=== PATIENT | male | born 1990 | race Caucasian/White ===

== ENCOUNTER 2019-06-15 01:24 | Emergency (ER) | payer BC ==
[~2019-06-15] VITALS: Ht 182.9 cm; Wt 97.7 kg
[2019-06-15 01:25] VITALS: TEMP 97.7
[2019-06-15 02:13] LABS: BASO # 0.1 (0.0-0.2); BASO % 0.7 % (0.0-2.0); EOS # 0.4 (0.0-0.7); EOS % 4.7 % (0-4.0); GRAN # 3.4 (1.4-6.5); GRAN % 45.7 % (42.2-75.2); HEMOGLOBIN 15.5 g/dl (13.5-18.0); LYMPH % 40.3 % (20.0-51.0); MEAN CELL VOLUME 86 fl (80.0-100.0); MEAN CORPUSCULAR HEMOGLOBIN 30 pg (27.0-31.0); MEAN CORPUSCULAR HGB CONC 34 g/dl (33.0-37.0); MEAN PLATELET VOLUME 9.4 fl (7.4-10.4); MONO # 0.6 (0.1-0.6); MONO % 8.1 % (1.7-9.3); PLATELET COUNT 247 K/mm3 (130-400); RED BLOOD COUNT 5.21 M/mm3 (4.20-5.60)
[2019-06-15 02:25] LABS: ALBUMIN 4.7 gm/dL (3.5-5.0); BILIRUBIN,TOTAL 0.7 mg/dL (0.0-1.0); C-REACTIVE PROTEIN 1.1 mg/dL (0.0-0.9); CALCIUM 9.5 mg/dL (8.4-10.2); CREATININE, serum 0.83 (0.66-1.25); POTASSIUM 3.9 mmol/L (3.4-5.0); TOTAL PROTEIN 7.7 gm/dL (6.4-8.2)
[2019-06-15 02:39] LABS: PROLACTIN 37.1 ng/mL (3.7-17.9)
[2019-06-15] MEDS ORDERED: PROTONIX40 MG/Pack PO (02:41)
[2019-06-15 04:00] VITALS: BP 113/70; PULSE 72
== END 2019-06-15 04:01 | disposition short-term general hospital (02) ==
LOC: COL.ER 01:24
PROVIDERS: Emergency Medicine
DX: G93.89 Other specified disorders of brain (principal); R56.9 Unspecified convulsions; K21.9 Gastro-esophageal reflux disease without esophagitis
CPT/HCPCS: J1100; J1953; J2060; J7030

== ENCOUNTER 2019-06-29 20:58 | Emergency (ER) | payer BC ==
[~2019-06-29] VITALS: Ht 182.9 cm; Wt 97.7 kg
[~2019-06-29 20:58] MED LIST: PROTONIX40 MG/Pack PO
[2019-06-29 21:15] VITALS: TEMP 99.6
[2019-06-29] MEDS ORDERED: TESSALON P100 MG/CAP PO (21:50)
[2019-06-29] MEDS ORDERED: TYLENOL 325MG325 MG PO (21:50)
[2019-06-29] MEDS ORDERED: VITAMIN D31000 IU PO (21:52)
[2019-06-29] MEDS ORDERED: DECADRON 1MG TAB1 MG PO (21:52)
[2019-06-29] MEDS ORDERED: KEPPRA1000 MG PO (21:52)
[2019-06-29] MEDS ORDERED: OXY IR5 MG PO (21:54)
[2019-06-29] MEDS ORDERED: CHLORASEPTIC 1180 M3 (21:55)
[2019-06-29] MEDS ORDERED: PROBIOTICA100 Millio PO (21:55)
[2019-06-29] MEDS ORDERED: VTAMINC250TA (21:56)
[2019-06-29] MEDS ORDERED: SENOKOT S 50 MG1 TAB PO (21:56)
[2019-06-29] MEDS ORDERED: LEVAQUIN 750MG750 M1 PO (23:03)
[2019-06-29] MEDS ORDERED: TUSS PO (23:03)
[2019-06-29 23:43] VITALS: BP 108/70; PULSE 91
== END 2019-06-29 23:45 | disposition home or self-care (01) ==
LOC: COL.ER 20:58
DX: J18.1 Lobar pneumonia, unspecified organism (principal); Z79.899 Other long term (current) drug therapy

== ENCOUNTER 2019-06-30 17:01 | Emergency (ER) | payer BC ==
[~2019-06-30] VITALS: Ht 182.9 cm; Wt 97.7 kg
[~2019-06-30 17:01] MED LIST changes: +CHLORASEPTIC 1180 M3; +DECADRON 1MG TAB1 MG PO; +KEPPRA1000 MG PO; +LEVAQUIN 750MG750 M1 PO; +OXY IR5 MG PO; +PROBIOTICA100 Millio PO; +SENOKOT S 50 MG1 TAB PO; +TESSALON P100 MG/CAP PO; +TUSS PO; +TYLENOL 325MG325 MG PO; +VITAMIN D31000 IU PO; +VTAMINC250TA
[2019-06-30 17:21] VITALS: TEMP 99.5
[2019-06-30 18:27] LABS: HEMATOCRIT 47.9 % (42.0-52.0); MEAN CELL VOLUME 89 fl (80.0-100.0); MEAN CORPUSCULAR HEMOGLOBIN 30 pg (27.0-31.0); MEAN CORPUSCULAR HGB CONC 33 g/dl (33.0-37.0); PLATELET COUNT 268 K/mm3 (130-400); RED BLOOD COUNT 5.39 M/mm3 (4.20-5.60); REDCELL DISTRIBUTION WIDTH-CV 12.4 % (11.5-14.5)
[2019-06-30 18:37] LABS: ALBUMIN 3.9 gm/dL (3.5-5.0); BILIRUBIN,TOTAL 0.9 mg/dL (0.0-1.0); CREATININE, serum 0.78 (0.66-1.25); POTASSIUM 4.4 mmol/L (3.4-5.0); TOTAL PROTEIN 7.2 gm/dL (6.4-8.2)
[2019-06-30 18:50] LABS: BAND 2 % (0-10); EOSINOPHIL 1 % (0-4); LYMPHOCYTE 14 % (20.0-51.0); NEUTROPHILS 73 % (42.0-75.2); PLATELET ESTIMATE NORMAL (NORMAL)
[2019-06-30 23:40] VITALS: BP 113/93; PULSE 93
== END 2019-06-30 23:20 | disposition short-term general hospital (02) ==
LOC: COL.ER 17:01
PROVIDERS: Emergency Medicine
DX: I26.99 Other pulmonary embolism without acute cor pulmonale (principal); Z85.841 Personal history of malignant neoplasm of brain
CPT/HCPCS: J1644; J7030; Q9967

== ENCOUNTER 2019-07-30 16:52 | Emergency (ER) | payer BC ==
[~2019-07-30] VITALS: Ht 182.9 cm; Wt 97.7 kg
[2019-07-30 17:01] VITALS: TEMP 98.2
[2019-07-30 17:30] LABS: BASO % 0.5 % (0.0-2.0); EOS # 0.1 (0.0-0.7); EOS % 1.4 % (0-4.0); GRAN # 2.4 (1.4-6.5); GRAN % 36.2 % (42.2-75.2); HEMATOCRIT 41.8 % (42.0-52.0); HEMOGLOBIN 14.4 g/dl (13.5-18.0); LYMPH # 3.3 (1.2-3.4); LYMPH % 49.4 % (20.0-51.0); MEAN CELL VOLUME 89 fl (80.0-100.0); MEAN CORPUSCULAR HEMOGLOBIN 31 pg (27.0-31.0); MEAN CORPUSCULAR HGB CONC 34 g/dl (33.0-37.0); MEAN PLATELET VOLUME 9.5 fl (7.4-10.4); MONO # 0.7 (0.1-0.6); MONO % 10.7 % (1.7-9.3); PLATELET COUNT 257 K/mm3 (130-400); REDCELL DISTRIBUTION WIDTH-CV 12.8 % (11.5-14.5)
[2019-07-30 17:44] LABS: PARTIAL THROMBOPLASTIN TIME 41.6 SECONDS (26.0-37.0)
[2019-07-30 17:51] LABS: INR 1.7 (0.8-3.0); PROTHROMBIN TIME 19.9 SECONDS (9.7-12.8)
[2019-07-30 17:57] LABS: ALANINE AMINOTRANSFERASE 54 U/L (21-72); ALBUMIN 4.4 gm/dL (3.5-5.0); ALKALINE PHOSPHATASE 82 U/L (50-136); ANION GAP 9 mmol/L (7-16); AST,SGOT 36 U/L (15-37); BILIRUBIN,TOTAL 0.5 mg/dL (0.0-1.0); BLOOD UREA NITROGEN 11 mg/dL (9-20); CALCIUM 9.5 mg/dL (8.4-10.2); CARBON DIOXIDE 27 mmol/L (22-30); CHLORIDE 103 mmol/L (98-107); CREATININE, serum 0.69 (0.66-1.25); GLUCOSE 80 mg/dL (74-106); POTASSIUM 4.2 mmol/L (3.4-5.0); SODIUM 139 mmol/L (137-145); TOTAL PROTEIN 7.3 gm/dL (6.4-8.2)
[2019-07-30 18:08] LABS: TROPONIN-I < 0.012 ng/mL (0.000-0.035)
[2019-07-30 18:35] VITALS: BP 109/73; PULSE 74
== END 2019-07-30 18:37 | disposition home or self-care (01) ==
LOC: COL.ER 16:52
PROVIDERS: Family Medicine
DX: K21.9 Gastro-esophageal reflux disease without esophagitis (principal); Z79.01 Long term (current) use of anticoagulants

== ENCOUNTER → 2019-08-13 | Outpatient (CLI) | payer BC | LOC: COL.LAB 13:33 | DX: R09.81 Nasal congestion (principal); R05 Cough ==